=== PATIENT | female | born 1950 | race Caucasian/White ===

== ENCOUNTER 2019-09-16 07:05 | Day surgery (SDC) | payer OTHER ==
[~2019-09-16 07:05] MED LIST: CIPRO500 MG PO; LISINOPRIL40 MG PO; PAXIL30 MG PO; PERCOCET 5/3251 TAB PO; POLY119PG PO; SURFAK240 M1 PO; ULTRACET PO; ZOCOR40 MG PO
== END 2019-09-16 12:45 | disposition home or self-care (01) ==
LOC: AMB-ENDOS 07:05
DX: K29.30 Chronic superficial gastritis without bleeding (principal); K20.8 Other esophagitis; K44.9 Diaphragmatic hernia without obstruction or gangrene; D13.1 Benign neoplasm of stomach